=== PATIENT | male | born 1970 | race Two or more races ===

== ENCOUNTER 2018-05-10 08:32 | Day surgery (SDC) | payer OTHER ==
[2018-05-10] VITALS (9 sets, daily range): BP systolic 95–114; BP diastolic 64–73
[~2018-05-10] VITALS: Ht 167.6 cm; Wt 73.9 kg
--- NOTE | 2018-05-10 07:51 | Anethesia Preoperative Eval ---
Anesthesia Pre-op PMH/ROS General Date of Evaluation: May 10, 2018 Anesthesiologist: Stan ASA Score: ASA 2 Mallampati Score Class I : Soft palate, uvula, fauces, pillars visible Class II: Soft palate, uvula, fauces visible Class III: Soft palate, base of uvula visible Class IV: Only hard plate visible Mallampati Classification: Class II Surgeon: Aryan Diagnosis: GERD, abdominal pain Surgical Procedure: EGD and colonoscopy Anesthesia History: none Family History: no anesthesia problems Allergies: Coded Allergies: PENICILLINS (Verified Allergy, Severe, RESPIRATORY DISTRESS, 05/09/18) Medications: see eMAR Patient NPO?: Yes NPO Date: May 09, 2018 NPO Time: 22:00 Past Medical History Cardiovascular: Denies: HTN, CAD, PR, valve dz, arrhythmia, other Pulmonary: Denies: asthma, COPD, MARCI, other Gastrointestinal/Genitourinary: Reports: GERD; Denies: CRI, ESRD, other Neurologic/Psychiatric: Denies: dementia, CVA, depression/anxiety, TIA, other Endocrine: Denies: DM, hypothyroidism, steroids, other HEENT: Denies: cataract (L), cataract (R), glaucoma, EAGLE (L), EAGLE (R), other Hematology/Immune: Denies: anemia, DVT, bleeding disorder, other Musculoskeletal/Integumentary: Reports: other - LBP; Denies: OA, RA, DJD, DDD, edema PSxH Narrative: Denies Anesthesia Pre-op Phys. Exam Physician Exam see chart Constitutional: NAD Cardiovascular: RRR Respiratory: CTA Airway Exam Mallampati Score: Class II MO: full ROM: full Teeth: intact Anesthesia Pre-op A/P Labs see chart Studies Pre-op Studies: EKG - sr Risk Assessment & Plan Assessment: ASA II Plan: MAC Status Change Before Surgery: No Pre-Antibiotics Drug: N/A Penelope Lo MD May 10, 2018 07:51
[~2018-05-10 08:32] MED LIST: DICLOFENAC SODI75 MG ORAL; DULCOLAX STOOL100 M1 PO; DiphenhydrAMINE 50mg/ml Inj IVP PRN; GABAPENTIN300 MG ORAL; PANTOPRAZOLE SO40 MG ORAL; TRAMADOL HCL50 MG ORAL
[2018-05-10] MEDS ORDERED: Lidocaine 1% MPF 10mg/ml 5ml ONE (09:30)
[2018-05-10] MEDS ORDERED: Propofol 200mg/20ml IV ONE (09:30)
[2018-05-10] MEDS ORDERED: LR 1000ml ONE (09:30)
--- NOTE | 2018-05-10 09:31 | Short Stay Surgery H&P ---
History of Present Illness History of Present Illness Chief Complaint Abdominal pains/GERDs/rectal bleeding DILCIA Pettit is a 48 year old male who was admitted on for Gerd/ Abdominal Pain/ rectal bleedings Patient History Allergies: Coded Allergies: PENICILLINS (Verified Allergy, Severe, RESPIRATORY DISTRESS, 05/09/18) PAST MEDICAL HISTORY: (1) Hx of appendectomy Medication History Scheduled Diclofenac Sod* (Voltaren*), 75 MG ORAL PRN, (Reported) Docusate Sodium (Dulcolax Stool Softener), 100 MG PO PRN, (Reported) Gabapentin* (Gabapentin*), 300 MG ORAL THREE TIMES A DAY, (Reported) Pantoprazole* (Pantoprazole*), 40 MG ORAL DAILY, (Reported) Scheduled PRN Tramadol Hcl* (Ultram*), 50 MG ORAL Q12HR PRN for For Pain, (Reported) Review of Systems Cardiovascular: Reports: no symptoms Respiratory: Reports: no symptoms Skeletal: Reports: trauma Gastrointestinal: Reports: gastro esophageal reflux disease Genitourinary: Reports: no symptoms Neurologic: Reports: neuropathy Endocrine: Reports: no symptoms Hematologic: Reports: no symptoms Physical Exam Vital Signs Last Vital Signs Date Time Temp Pulse Resp B/P (MAP) Pulse Ox O2 Delivery O2 Flow Rate FiO2 05/10/18 09:04 Room Air 05/10/18 09:00 98.5 69 18 114/69 99 Skin: normal HENT: normal Heart: normal Lungs: normal Abdomen: abnormal Extremities: normal Genitourinary: normal Plan Plan of Care Upper and lower GI endoscopic exam with obtaining biopsies as needed. Preop Interventions None. Summary of Findings See the reports Attestation Are the patient's medical conditions optimized for surgery? Attestation Response: yes Carlotta Baeza MD May 10, 2018 09:31
--- NOTE | 2018-05-10 09:33 | Pre-Procedure Note/Attestation ---
Pre-Procedure Note/Attestation Complete Prior to Procedure Planned Procedure: left Procedure Narrative: examination of the upper and the lower GI tracts via endoscopy. Indications for Procedure Pre-Operative Diagnosis: R/O Gastritis/Peptic ulcer/hemorrhoids/colon polyps/colitis. Attestation I attest that I discussed the nature of the procedure; its benefits; risks and complications; and alternatives (and the risks and benefits of such alternatives ), prior to the procedure, with the patient (or the patient's legal shared services representative). I attest that, if there was a reasonable possibility of needing a blood transfusion, the patient (or the patient's legal shared services representative) was given the [place] [employer] [facility] [employer] [facility] standardized written summary, pursuant to the Jose Rossi Blood Safety Act ([place] Health and Safety Code # 1645, as amended). I attest that I re-evaluated the patient just prior to the surgery and that there has been no change in the patient's H&P, except as documented below: Carlotta Baeza MD May 10, 2018 09:33
--- NOTE | 2018-05-10 10:01 | Endoscopy Procedure Note ---
Endoscopy Procedure Note General Indication for Procedure: Abdominal pain, GERDs, dysphagia, rectal bleeding/ constipation Procedures Performed: EGD - completely normal upper GI. endoscopy, biopsy was obtained per random from gastric body., colonoscopy - Minimal internal hemorrhoids with rare left colon diverticuli; otherwise completely normal total colonoscopy. Specimen: yes Pt Tolerated Procedure Well: Yes Estimated Blood Loss: none Anesthesia Anesthesiologist: Dr. Pierce Anesthesia: moderate sedation Medications Medication Given: see anesthesia record Inserted Devices Implant(s) used?: No Quality Quality of Bowel Preparation: Excellent Did scope reach the cecum?: Yes Was there any complications?: No GI Core Measures 50 yrs or older w/o bx or poly: No 10yrs. F/U not recommended: Yes If not recommended, why?: 10 yrs. F/U needed: Yes 18 years or older w/prev. colo: No <3yrs. since last colonoscopy: No Med reason:<3 yrs.: System Reason:<3 yrs.: Carlotta Baeza MD May 10, 2018 10:01
--- NOTE | 2018-05-10 10:02 | Discharge Instructions ---
Discharge Instructions Discharge Instructions Follow up with: Visit the doctor in office after 2 weeks For Congestive Heart Failure Reminder Report to your physician any weight gain of 5 pounds or more in one week. Carlotta Baeza MD May 10, 2018 10:02
--- NOTE | 2018-05-10 10:11 | Immediate Post-Op Evaluation ---
Immediate Post-Op Evalulation Immediate Post-Op Evalulation Procedure: EGD and colonoscopy Date of Evaluation: May 10, 2018 Time of Evaluation: 10:11 IV Fluids: 400 Blood Products: 0 Estimated Blood Loss: 0 Urinary Output: 0 Blood Pressure Systolic: 99 Blood Pressure Diastolic: 73 Pulse Rate: 94 Respiratory Rate: 16 O2 Sat by Pulse Oximetry: 100 Temperature (Fahrenheit): 97.6 Pain Score (1-10): 0 Nausea: No Vomiting: No Complications 0 Patient Status: awake, reacts, patent, none Hydration Status: adequate Drug: N/A Penelope Lo MD May 10, 2018 10:11
--- NOTE | 2018-05-10 10:12 | 48 Hour Post Anesthesia Eval ---
Post Anesthesia Evaluation Procedure: EGD and colonoscopy Date of Evaluation: May 10, 2018 Airway: patent Nausea: No Vomiting: No Pain Intensity: 0 Hydration Status: adequate Cardiopulmonary Status: at baseline Mental Status/LOC: patient returned to baseline Post-Anesthesia Complications: 0 Follow-up care needed: ready to discharge Penelope Lo MD May 10, 2018 10:12
--- NOTE | 2018-05-10 16:00 | Pre-op HX & Phy Repo 2 SIG ---
DATE OF ADMISSION: 05/10/2018 HISTORY OF PRESENT ILLNESS: The patient is a 47-year-old gentleman who is being seen prior to undergoing the procedure for upper GI endoscopy for clearing up to receive anesthesia. The patient was seen by me approximately a month ago complaining of symptoms of gastroesophageal reflux, abdominal pain, and also constipation and rectal bleeding. 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 At this point, he has been experiencing symptoms of upper GI tract mostly with symptoms of heartburn and epigastric discomfort, mostly the pain located over the sternal area. He has had history of taking nonsteroidal anti-inflammatory agents for a long period of time subsequent to his work injury that he reports that this has caused some aggravation and producing GI condition as he is also currently taking ibuprofen 800 mg but he reports that he stopped approximately 3 months ago. He also complains of having periods of rectal bleeding of minimal amount, mostly after constipation that he is dealing with as well. He denies having any gastrointestinal conditions before accident in the past, never diagnosed to have any upper or lower gastrointestinal conditions. PAST MEDICAL HISTORY: Basically nonsignificant, but he has had diagnosis of nonalcoholic fatty liver disease that he is being followed up by his primary physicians outside worker compensation. He denies having high blood pressure, high cholesterol, etc. SURGERIES: He has had history of appendectomy. ALLERGIES: To penicillin. FAMILY HISTORY: None significant. HABITS: He does not drink alcohol and does not smoke cigarettes. MEDICATIONS: Currently Protonix 40 mg daily, gabapentin 300 mg, and tramadol for pain. As I mentioned, has stopped taking nonsteroidal anti-inflammatory agents for past 3 months. REVIEW OF SYSTEMS: Basically history of present illness. He has however reported that he has some anxiety and depressive moods. PHYSICAL EXAMINATION: GENERAL: At this time reveals alert and well-oriented gentleman, does not seem to be in any acute distress. He answers the questions quite properly, well developed and nourished. VITAL SIGNS: All stable. HEENT: Normocephalic. Pupils are equal in size and reactive to light and accommodation. No visible jaundice. Buccal cavity, tongue midline, well hydrated. NECK: Supple. No JVD or thyromegaly. CHEST: Clear to auscultation and percussion. No rales or rhonchi. HEART: S1 and S2 normal. Regular rhythm. No gallops or murmur. ABDOMEN: Soft. Minimal tenderness over the upper part of the abdomen, but there is no organomegaly. No palpable mass. Bowel sounds are present. EXTREMITIES: Within normal limits. CENTRAL NERVOUS SYSTEM: Within normal limits. PRELIMINARY PREOPERATIVE IMPRESSION: 1. History of epigastric pain and chronic gastroesophageal reflux, rule out NSAID induced gastropathy, peptic ulcer disease, esophagitis, gastritis. 2. History of dysphagia possibly secondary to gastroesophageal spasm related to acid reflux, rule out NSAID-induced esophagitis. 3. Constipation, possibly related to the lack of physical activity or pain medications. 4. History of nonalcoholic fatty liver disease. RECOMMENDATIONS: The patient at this time seems to be quite stable to undergo the procedure of upper gastrointestinal and lower GI endoscopic examination that he has been scheduled for. He understands the risks and benefits and will sign the consent. Said Madan Baeza DR: Klarissa JOB#: [id number] CC:
--- NOTE | 2018-05-10 16:15 | Operative Note - Dictated ---
DATE OF OPERATION: 05/10/2018 PROCEDURE: Esophagogastroduodenoscopy with biopsy. PREOPERATIVE DIAGNOSES: 1. Abdominal pain. 2. Gastroesophageal acid reflux. 3. Dysphagia. POSTOPERATIVE DIAGNOSIS: Completely normal upper GI endoscopy. Biopsy was taken per random from gastric body. MEDICATION USED: Per Dr. Pierce, anesthesiologist. INSTRUMENT: GIF Olympus upper GI video endoscope. DESCRIPTION OF PROCEDURE: The patient after arriving endoscopy unit, was told about risks and benefits of the procedure, which he accepted and signed informed consent. He was then put in the left lateral decubitus position. After adequate IV sedation, the scope was gently passed through the cricopharyngeal area and was lodged into the upper esophagus and gradually advanced towards gastroesophageal junction. The entire length of the esophagus looked normal. There was no any evidence of inflammatory process, ulceration, stricture, etc. GE junction also looked normal without any Arreguin's or hiatal hernia. At this time, the scope was advanced into the stomach, gastric cavity was distended with insufflation of air. Gradually, the areas of the fundus and the body and the antrum were examined closely and there was no any mucosal abnormality noted. No evidence of ulcers, tumors, polyps, bleeding, etc. Random biopsy from gastric body was obtained and subsequently, the scope was retroflexed and was pushed towards the GE junction, which revealed normal findings. At this time, the scope was passed through normal looking pylorus. First and second portion of duodenum were also found to be completely normal. Finally, the scope was pulled out and the procedure was terminated. The patient tolerated the procedure well. Said Madan Baeza DR: MEERA JOB#: [id number] CC:
--- NOTE | 2018-05-10 16:15 | Procedure Note ---
DATE OF PROCEDURE: 05/10/2018 PROCEDURE: Total colonoscopy. PREOPERATIVE DIAGNOSES: 1. Constipation. 2. Abdominal pain. 3. Rectal bleeding. POSTOPERATIVE DIAGNOSES: 1. Evidence of minimal internal hemorrhoids, mostly probably cause of occasional rectal bleeding. 2. Rare left colonic diverticula, otherwise completely normal up to the base of the cecum as examined. MEDICATION USED: Per Dr. Pierce, anesthesiologist. INSTRUMENT: GIF Olympus videocolonoscope. DESCRIPTION OF PROCEDURE: The patient after arriving endoscopy unit, was told about risks and benefits of the procedure which he accepted and signed informed consent. He was then put on the left lateral decubitus position and after adequate IV sedation, the scope was gently passed through the anal area which revealed evidence of minimal internal hemorrhoids, which were not friable at this time. Retroflexion maneuver was also applied in the rectum and careful examination of this section revealed no particular colonic abnormality, but confirmed evidence of very minimal internal hemorrhoid of no great significance. At this time, the scope was passed through rather redundant left colon reaching towards the splenic flexure. Occasionally, revealed evidence of couple of diverticular openings in the rectosigmoid area, which were not significant. As I mentioned, there were quite rare. At this point, the scope was advanced towards the splenic flexure, transverse colon, hepatic flexure and finally was guided into the right colon all the way to the base of the cecum. All these areas remained to be completely normal without any evidence of pathological finding such as polyps, tumors, inflammatory process, colitis, strictures, etc. Upon reaching to the base of the cecum, which also looked quite normal. At this time within 6 minutes, the scope was gradually pulled out as the colon cleanup was quite good and excellent. No other findings were found. At this time the scope was gradually pulled out and the procedure was terminated. The patient tolerated the procedure well and left the endoscopy room in a good condition. Said Madan Baeza DR: Klarissa JOB#: [id number] CC:
== END 2018-05-10 11:35 | disposition home or self-care (01) ==
LOC: GAS 08:32
DX: K21.9 Gastro-esophageal reflux disease without esophagitis (principal); R13.10 Dysphagia, unspecified; K29.50 Unspecified chronic gastritis without bleeding; K62.5 Hemorrhage of anus and rectum; K59.00 Constipation, unspecified; K64.8 Other hemorrhoids; K57.30 Diverticulosis of large intestine without perforation or abscess without bleeding; F41.9 Anxiety disorder, unspecified; F32.9 Major depressive disorder, single episode, unspecified; K76.0 Fatty (change of) liver, not elsewhere classified; Z90.49 Acquired absence of other specified parts of digestive tract; Z88.0 Allergy status to penicillin
CPT/HCPCS: 43239; 45378; J2704; 94003; 94150